=== PATIENT | female | born 1990 | race African-American/Black ===

== ENCOUNTER 2018-06-07 15:57 | Emergency (ER) | payer MEDICAID, OTHER ==
[~2018-06-07] VITALS: Ht 162.6 cm; Wt 50.0 kg
[2018-06-07] MEDS ORDERED: KETOROLAC 60MG/2ML VIAL IM ONE (22:45)
[2018-06-08 01:21] VITALS: BP 128/77
== END 2018-06-08 01:22 | disposition home or self-care (01) ==
LOC: ER 16:40
DX: R10.9 Unspecified abdominal pain (principal); K21.9 Gastro-esophageal reflux disease without esophagitis
CPT/HCPCS: 96372; 99283; J1885